=== PATIENT | male | born 1940 | race Caucasian/White ===

== ENCOUNTER → 2016-09-14 | Outpatient (CLI) | payer MEDICARE, OTHER ==
--- NOTE | 2016-09-14 14:41 | RAD ---
Lower extremity duplex artery ultrasound - bilateral 09/14/16 Indication: Claudication in the knees, bilateral leg pain (right. Comparison: None available. Procedure: Real-time grayscale, color-flow, duplex Doppler and spectral analysis of both lower extremity arterial system is performed and images are obtained.. Findings: There is mild scattered atheromatous calcification in the calf arteries bilaterally. Normal triphasic waveforms are present in the common femoral artery, superficial femoral artery, popliteal artery, anterior tibial artery, post tibial artery and dorsalis pedis artery. Impression: Mild plaque formation] in the calf arteries with no hemodynamically significant stenosis..
== END | disposition home or self-care (01) ==
LOC: US 12:21
PROVIDERS: ATTEND Physician Assistant Medical
DX: I73.9 Peripheral vascular disease, unspecified (principal); M25.562 Pain in left knee; M25.561 Pain in right knee
CPT/HCPCS: 93925

== ENCOUNTER → 2017-02-13 | Outpatient (CLI) | payer MEDICARE, OTHER ==
[~2017-02-13] MED LIST: BUPIVACAINE MPF 0.5% 30 ML VIAL. ONE; LIDOCAINE 1% PF 30 ML VIAL. ONE; methylPREDNISolone ACETATE 40 MG/ML VIAL. ONE
== END | disposition home or self-care (01) ==
LOC: SURG 09:22
PROVIDERS: ATTEND Anesthesiology Pain Medicine
DX: M47.816 Spondylosis without myelopathy or radiculopathy, lumbar region (principal); I48.91 Unspecified atrial fibrillation; Z88.9 Allergy status to unspecified drugs, medicaments and biological substances
CPT/HCPCS: 64493; 64494; J1030; J2001; J3490; 64495

== ENCOUNTER → 2017-07-17 | Day surgery (SDC) | payer MEDICARE, OTHER ==
[~2017-07-17] MED LIST changes: +APIX5TAB3 PO; +ATOR40TA PO; +BACITRACIN 50,000 UNIT VIAL. ONE; +CELE200C PO; +CEPH-264 PO; +CETI10TA22 PO; +CHOL100013 PO; +CYCL-331 PO; +DEXAMETHASONE SOD PHOS 4 MG/ML VIAL ONE; +ESZO3TAB28 PO; +FISH12002 PO; +FURO-69 PO; +GABA-586 PO; +GLUC100018 PO; +HYDR-2762 PO; +ISOS30TA4 PO; +IV RINGERS SOLUTION,LACTATED 1,000 ML IV ONE; +IV RINGERS SOLUTION,LACTATED 1,000 ML IV SCH; +LEVO175T2 PO; +LIDOCAINE 1% PF 2 ML VIAL. ID PRN; +MIDAZOLAM HCL PF 2 MG/2 ML VIAL. ONE; +MULT1TAB52 PO; +OLME1TAB35 PO; +OMEP20CA9 PO; +ONDANSETRON PF 4 MG/2 ML VIAL. IV PRN; +POTA10TA PO; +PROCHLORPERAZINE 10 MG/2 ML VIAL. IV PRN; +PROPOFOL 10,000 MCG/ML (20ML) VIAL IV ONE; +PROPOFOL 20 ML IV ONE; +[UNRECOGNIZED DRUG - OTHER]; +ceFAZolin 2GM PREMIX 2 GM/50 ML BAG IV ONE; +fentaNYL PF 250 MCG/5 ML VIAL ONE; -methylPREDNISolone ACETATE 40 MG/ML VIAL. ONE
[2017-07-17 11:15] LABS: BASO % 1 % (0-3); EOS # 0.1 x10^3/uL (0.0-0.7); EOS % 2 % (0-3); HEMATOCRIT 48.1 % (39.0-53.0); HEMOGLOBIN 16.1 g/dL (13.0-17.5); LYMPH % 17 % (24-48); MEAN CORPUSCULAR HEMOGLOBIN 30 pg (25-35); MEAN CORPUSCULAR HGB CONC 34 g/dL (31-37); MEAN CORPUSCULAR VOLUME 90 fL (79-100); MONO # 0.7 x10^3/uL (0.0-1.1); MONO % 11 % (0-9); NEUT % 69 % (31-73); PLATELET COUNT 174 x10^3/uL (140-400); RED BLOOD COUNT 5.32 x10^6/uL (4.30-5.70); RED CELL DISTRIBUTION WIDTH 13.9 % (11.5-14.5); WHITE BLOOD COUNT 5.8 x10^3/uL (4.0-11.0)
[2017-07-17 14:06] VITALS: BP 145/83
== END ==
LOC: SURG 10:02
PROVIDERS: ATTEND Anesthesiology Pain Medicine
DX: M54.16 Radiculopathy, lumbar region (principal); I10 Essential (primary) hypertension; I48.91 Unspecified atrial fibrillation; G47.30 Sleep apnea, unspecified; K21.9 Gastro-esophageal reflux disease without esophagitis; Z79.899 Other long term (current) drug therapy; Z79.01 Long term (current) use of anticoagulants; Z90.49 Acquired absence of other specified parts of digestive tract
CPT/HCPCS: 36415; 62380; 85025; 85610; 85730; J0690; J1100; J2001; J2250; J2704; J3010; J3490; J7120

== ENCOUNTER → 2018-02-14 | Outpatient (CLI) | payer MEDICARE, OTHER ==
[2017-07-17 14:06] VITALS: BP 145/83
[~2018-02-14] MED LIST changes: -BACITRACIN 50,000 UNIT VIAL. ONE; -BUPIVACAINE MPF 0.5% 30 ML VIAL. ONE; -DEXAMETHASONE SOD PHOS 4 MG/ML VIAL ONE; -IV RINGERS SOLUTION,LACTATED 1,000 ML IV ONE; -IV RINGERS SOLUTION,LACTATED 1,000 ML IV SCH; -LIDOCAINE 1% PF 2 ML VIAL. ID PRN; -LIDOCAINE 1% PF 30 ML VIAL. ONE; -MIDAZOLAM HCL PF 2 MG/2 ML VIAL. ONE; -ONDANSETRON PF 4 MG/2 ML VIAL. IV PRN; -PROCHLORPERAZINE 10 MG/2 ML VIAL. IV PRN; -PROPOFOL 10,000 MCG/ML (20ML) VIAL IV ONE; -PROPOFOL 20 ML IV ONE; -ceFAZolin 2GM PREMIX 2 GM/50 ML BAG IV ONE; -fentaNYL PF 250 MCG/5 ML VIAL ONE
[2018-02-14 10:36] LABS: ALBUMIN 3.9 g/dL (3.4-5.0); ALBUMIN/GLOBULIN RATIO 1.2 (1.0-1.7); CALCIUM 9.7 mg/dL (8.5-10.1); CREATININE 0.8 mg/dL (0.7-1.3); GFR 94.2; POTASSIUM 3.8 mmol/L (3.5-5.1); TOTAL BILIRUBIN 0.8 mg/dL (0.2-1.0); TOTAL PROTEIN 7.2 g/dL (6.4-8.2)
== END | disposition home or self-care (01) ==
LOC: LAB 09:40
PROVIDERS: ATTEND Nurse Practitioner
DX: E78.49 Other hyperlipidemia (principal)
CPT/HCPCS: 36415; 80053; 80061

== ENCOUNTER → 2018-07-22 | Outpatient (CLI) | payer MEDICARE, OTHER ==
[2017-07-17 14:06] VITALS: BP 145/83
[~2018-07-22] MED LIST changes: -HYDR-2762 PO; +HYDR-2765 PO
--- NOTE | 2018-07-23 08:31 | RAD ---
CHEST PA LATERAL CLINICAL INDICATION: cough. COMPARISON: None FINDINGS: Heart is normal in size. Mild bilateral prominent bronchial markings are seen. No focal consolidation. No pneumothorax or pleural effusion. Visualized bony thorax is within normal limits. IMPRESSION: Findings of atypical/viral infection or interstitial pulmonary edema. Electronically signed by: Tristen Garces DO (07/23/2018 8:28 AM) [facility]
== END | disposition home or self-care (01) ==
LOC: RAD 11:14
DX: R05 Cough (principal)
CPT/HCPCS: 71046

== ENCOUNTER 2019-01-03 18:30 | Emergency (ER) | payer MEDICARE, OTHER ==
[~2019-01-03] VITALS: Ht 185.4 cm; Wt 124.7 kg
[~2019-01-03 18:30] MED LIST changes: +OMEP20CA10 PO; -OMEP20CA9 PO
[2019-01-03 18:57] VITALS: BP 133/90
[2019-01-03 19:16] LABS: BACTERIA,URINE 0 /HPF (0-FEW); BILIRUBIN,URINE NEG (NEG); CLARITY,URINE HAZY; COLOR,URINE AMBER; GLUCOSE,URINE NEG (NEG); NITRITE,URINE NEG (NEG); RBC,URINE TNTC /HPF (0-2); UROBILINOGEN,URINE 4 mg/dL (0.2 mg/dL)
[2019-01-03 19:17] LABS: SQUAMOUS EPITHELIAL CELL,UR OCC /LPF
--- NOTE | 2019-01-03 19:29 | PHYS DOC ---
Past History Past Medical History: Other Past Surgical History: Other Additional Past Surgical Histo: right rotator cuff Smoking: Non-smoker Alcohol Use: Rarely Drug Use: None Adult General Chief Complaint Chief Complaint: BLOOD IN URINE HPI HPI Patient is a 78-year-old male presents with blood in his urine. He underwent a right rotator cuff surgery 5 days ago. Due to complications of the surgery ended up having to be admitted and also had a Benavidez catheter placed due to urinary retention. This afternoon noted some blood in the urine, and a feeling of fullness. This has subsequently passed. Patient denies any fever. Denies any back or flank pain. Symptoms are mild to moderate.[] Review of Systems Review of Systems Constitutional: Denies fever or chills [] Eyes: Denies change in visual acuity, redness, or eye pain [] HENT: Denies nasal congestion or sore throat [] Respiratory: Denies cough or shortness of breath [] Cardiovascular: No chest pain or palpitations[] GI: Denies abdominal pain, nausea, vomiting, bloody stools or diarrhea [] : See history of present illness[] Musculoskeletal: Denies back pain or joint pain [] Integument: Denies rash or skin lesions [] Neurologic: Denies headache, focal weakness or sensory changes [] Endocrine: Denies polyuria or polydipsia [] All other systems were reviewed and found to be within normal limits, except as documented in this note. Allergies Allergies Allergies Coded Allergies Type Severity Reaction Last Updated Verified niacin Allergy Unknown 07/17/17 Yes Physical Exam Physical Exam Constitutional: Well developed, well nourished, no acute distress, non-toxic appearance. [] HENT: Normocephalic, atraumatic, bilateral external ears normal, oropharynx moist, no oral exudates, nose normal. [] Eyes: PERRLA, EOMI, conjunctiva normal, no discharge. [] Neck: Normal range of motion, no tenderness, supple, no stridor. [] Cardiovascular:Heart rate regular rhythm, no murmur [] Lungs & Thorax: Bilateral breath sounds clear to auscultation [] Abdomen: Bowel sounds normal, soft, no tenderness, no masses, no pulsatile masses. [] Skin: Warm, dry, no erythema, no rash. [] Back: No tenderness, no CVA tenderness. [] Extremities: No tenderness, no cyanosis, no clubbing, ROM intact, no edema. [] Neurologic: Alert and oriented X 3, normal motor function, normal sensory function, no focal deficits noted. [] Psychologic: Affect normal, judgement normal, mood normal. [] Current Patient Data Vital Signs Vital Signs Date Time Temp Pulse Resp B/P (MAP) Pulse Ox O2 Delivery O2 Flow Rate FiO2 01/03/19 18:57 98.9 92 18 96 Room Air Lab Results Laboratory Tests Test 01/03/19 18:50 Urine Collection Type Unknown Urine Color [place] Urine Clarity Hazy Urine pH 5.5 Urine Specific [place] 1.020 Urine Protein 100 mg/dl (NEG-TRACE) Urine Glucose (UA) Neg mg/dL (NEG) Urine Ketones (Stick) Neg mg/dL (NEG) Urine Blood Large (NEG) Urine Nitrite Neg (NEG) Urine Bilirubin Neg (NEG) Urine Urobilinogen Dipstick 4 mg/dL (0.2 mg/dL) Urine Leukocyte Esterase Small (NEG) Urine RBC Tntc /HPF (0-2) Urine WBC 1-4 /HPF (0-4) Urine Squamous Epithelial Cells Occ /LPF Urine Bacteria 0 /HPF (0-FEW) Urine Mucus Slight /LPF EKG EKG [] Radiology/Procedures Radiology/Procedures [] Course & Med Decision Making Course & Med Decision Making Pertinent Labs and Imaging studies reviewed. (See chart for details) ED course: Patient arrived, was placed in bed, and tolerated exam well. The bladder was irrigated with return of red tinged fluid. After copious irrigation, a repeat bladder scan was performed that showed 17 mL residual. He was feeling much better. He was discharged in improved condition. Medical decision making: There is no evidence of an infection. No evidence of obstruction. No evidence of retention.[] Dragon Disclaimer Dragon Disclaimer This electronic medical record was generated, in whole or in part, using a voice recognition dictation system. Departure Departure: Impression: Primary Impression: Complication of Benavidez catheter Disposition: 01 HOME, SELF-CARE Condition: IMPROVED Referrals: CALI DAMON (PCP) Follow-up in 2-3 days Patient Instructions: Benavidez Catheter Care, Adult Additional Instructions: Follow-up with your regular doctor in 2-3 days. Return to the ER if worsening discomfort, increased amount of blood in your urine, or any other concerns. Problem Qualifiers Primary Impression: Complication of Benavidez catheter Encounter type: initial encounter Qualified Codes: T83.9XXA - Unspecified complication of genitourinary prosthetic device, implant and graft, initial encounter ASPEN DUNN DO Jan 03, 2019 19:29
== END 2019-01-03 20:00 | disposition home or self-care (01) ==
LOC: ER 18:30
DX: T83.098A Other mechanical complication of other urinary catheter, initial encounter (principal); R33.9 Retention of urine, unspecified; R31.9 Hematuria, unspecified; Z88.1 Allergy status to other antibiotic agents
CPT/HCPCS: 81001; 87086; 99285

== ENCOUNTER 2020-06-23 19:44 | Emergency (ER) | payer MEDICARE, OTHER ==
[~2020-06-23] VITALS: Ht 182.9 cm; Wt 120.5 kg
[~2020-06-23 19:44] MED LIST changes: -CETI10TA22 PO; +CETI10TA74 PO; -ISOS30TA4 PO; +ISOS30TA68 PO; +MULT-445 PO; -MULT1TAB52 PO; -OMEP20CA10 PO; +OMEP20CA16 PO
--- NOTE | 2020-06-23 19:53 | PHYS DOC ---
Past History Past Medical History: Other Past Surgical History: Other Additional Past Surgical Histo: right rotator cuff Smoking: Non-smoker Alcohol Use: Rarely Drug Use: None General Adult EDM: Chief Complaint: MECHANICAL FALL HPI: HPI: ". I had a slipp and fall.. the Lt. ankle and foot still sore.. and this knee a hurting..." Patient is a 80 year old male retired [employer] who presents with above hx and complaints of fall and injury to Lt ankle. Pt follows with Devorah for care. Pt. can do straight leg lift. Has some ecchymosis and edema behind left leg and lateral side of knee. Patient has obvious swelling of malleolus bilaterally and ankle. Small abrasion. Negative foot squeeze. Small toe Lt tender and red. Distal dorsal pedal pulses are equal. 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 Patient denies any syncope or dizziness before fall. Patient denies other injury. Patient normally follows with Devorah for care. Review of Systems: Review of Systems: Constitutional: Denies fever or chills Eyes: Denies change in visual acuity HENT: Denies nasal congestion or sore throat Respiratory: Denies cough or shortness of breath Cardiovascular: Denies chest pain or edema GI: Denies abdominal pain, nausea, vomiting, bloody stools or diarrhea : Denies dysuria Musculoskeletal: Complains of left knee, left ankle, left foot pain Integument: Denies rash Neurologic: Denies headache, focal weakness or sensory changes Endocrine: Denies polyuria or polydipsia Lymphatic: Denies swollen glands Psychiatric: Denies depression or anxiety Family History: Family History: Noncontributory to presentation Current Medications: Current Meds: See nursing for home meds Allergies: Allergies: Allergies Coded Allergies Type Severity Reaction Last Updated Verified niacin Allergy Unknown 07/17/17 Yes Physical Exam: PE: Constitutional: Moderate acute distress, non-toxic appearance. [] HENT: Normocephalic, atraumatic, bilateral external ears normal, oropharynx moist, no oral exudates, nose normal. [] Eyes: PERRLA, EOMI, conjunctiva normal, no discharge. [] Neck: Normal range of motion, no tenderness, supple, no stridor. [] Cardiovascular:Heart rate regular rhythm, no murmur [] Lungs & Thorax: Bilateral breath sounds equal apex with some basilar crackles bilaterally on auscultation [] Abdomen: Bowel sounds normal, soft, no tenderness, no masses, no pulsatile masses. Obese. Skin: Warm, dry, no erythema, no rash. [] Back: No tenderness, no CVA tenderness. [] Extremities: Left knee, ankle, and foot tenderness, no cyanosis, no clubbing, ROM limited in left ankle because of pain, , left ankle edema. Does appear to have laxity and instability of left ankle. [] Right shoulder scar. Neurologic: Alert and oriented X 3, moves all extremities but limited with left leg because of pain, does have distal sensory,, Does appear to have decreased plantar sensation. Psychologic: Affect anxious judgement normal, mood normal. [] EKG: EKG: [] Radiology/Procedures: Radiology/Procedures: [] IMAGING REPORT Signed PATIENT: DIETER GOMEZCOUNT: [id number] : 1940 LOCATION: ER AGE: 80 SEX: M EXAM STATUS: REG ER ORD. PHYSICIAN: CANDICE LOERA MD REASON: Fall on ice, left foot, ankle and knee pain PROCEDURE: KNEE LEFT 4V EXAM: XR EXAM OF ANKLE_LEFT 3V, XR KNEE _4 VIEWS WITH PATELLA_LT, XR FOOT_LEFT 3 VIEWS 06/23/2020 8:10 PM CLINICAL INDICATION: Fell on ice, left ankle foot and knee pain COMPARISON: None FINDINGS: Left foot: 3 views were obtained there is a nondisplaced fracture of the little toe proximal phalanx. No other fracture of the foot. Alignment is normal. Large acute insertional calcaneal enthesophyte. An os peroneum is noted. There is soft tissue swelling of the little toe. Left ankle: There is an oblique fracture of the distal fibula extending proximally from the level of the distal tibiofibular syndesmosis. The fracture results in a 4 mm lateral displacement and slight lateral angulation of the distal fragment. There is a transverse fracture medial malleolus resulting in 4 mm lateral displacement the distal fragment. There is medial clear space widening measuring 9 mm. Mild lateral tilt of the talus. The talar dome is intact. No definite posterior malleolar fracture. Mild soft tissue swelling, greatest laterally. Left knee: No acute fracture. Alignment is normal. There is severe lateral compartment narrowing with subchondral sclerosis and large osteophytes. Mild medial compartment and patellofemoral compartment narrowing. There is a small joint effusion. IMPRESSION: 1. Mildly displaced bimalleolar fractures with medial clear space widening. 2. Nondisplaced fracture of the little toe proximal phalanx. 3. No acute osseous abnormality of the knee. 4. 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 Electronically signed by: Radha Escobedo MD (06/23/2020 8:36 PM) [id number] DICTATED AND SIGNED BY: RADHA ESCOBEDO MD DATE: 06/23/202030 CC: CANDICE LOERA MD; CALI DAMON ~MTH0 0 Heart Score: Risk Factors: Risk Factors: DM, Current or recent (<one month) smoker, HTN, HLP, family history of CAD, obesity. Risk Scores: Score 0 - 3: 2.5% MACE over next 6 weeks - Discharge Home Score 4 - 6: 20.3% MACE over next 6 weeks - Admit for Clinical Observation Score 7 - 10: 72.7% MACE over next 6 weeks - Early Invasive Strategies Course & Med Decision Making: Course & Med Decision Making Pertinent Labs and Imaging studies reviewed. (See chart for details) Patient to wear splint. Patient elevate leg above the heart. Use walker. Follow-up with orthopedics. Take Tylenol and ibuprofen for pain. For marked pain may take Vicoprofen. Distal neurovascular intact after application of splint. Call Ortho of choice or [facility] [phone]. Impression: 1. Trip, slip and fall 2. Bimalleolar fractures left ankle 3. Fifth left toe fracture 4. Marked degenerative joint changes left knee 5. [] Dragon Disclaimer: Ramón Disclaimer: This electronic medical record was generated, in whole or in part, using a voice recognition dictation system. Departure Departure: Referrals: CALI DAMON (PCP) Scripts Hydrocodone/Ibuprofen (HYDROCODONE-IBUPROFEN 7.5-200 ) 1 Each Tablet 1 TAB PO PRN Q6HRS PRN for PAIN, #30 TAB 0 Refills Prov: CANDICE LOERA MD 06/23/20 Dragon Disclaimer This chart was dictated in whole or in part using Voice Recognition software in a busy, high-work load, and often noisy Emergency Department environment. It may contain unintended and wholly unrecognized errors or omissions. Dragon Disclaimer This chart was dictated in whole or in part using Voice Recognition software in a busy, high-work load, and often noisy Emergency Department environment. It may contain unintended and wholly unrecognized errors or omissions. CANDICE LOERA MD Jun 23, 2020 19:53
[2020-06-23] MEDS ORDERED: HYDROcodon/IBUPROFEN 7.5/200MG 1 TAB TABLET PO ONE (20:15)
--- NOTE | 2020-06-23 20:39 | RAD ---
EXAM: XR EXAM OF ANKLE_LEFT 3V, XR KNEE _4 VIEWS WITH PATELLA_LT, XR FOOT_LEFT 3 VIEWS 06/23/2020 8:1 0 PM CLINICAL INDICATION: Fell on ice, left ankle foot and knee pain COMPARISON: None FINDINGS: Left foot: 3 views were obtained there is a nondisplaced fracture of the little toe proximal phalanx. No other fracture of the foot. Alignment is normal. Large acute insertional calcaneal enthesophyte. An os peroneum is noted. There is soft tissue swelling of the little toe. Left ankle: There is an oblique fracture of the distal fibula extending proximally from the level of the distal tibiofibular syndesmosis. The fracture results in a 4 mm lateral displacement and slight l ateral angulation of the distal fragment. There is a transverse fracture medial malleolus resulting i n 4 mm lateral displacement the distal fragment. There is medial clear space widening measuring 9 mm. Mild lateral tilt of the talus. The talar dome is intact. No definite posterior malleolar fracture. Mild soft tissue swelling, greatest laterally. Left knee: No acute fracture. Alignment is normal. There is severe lateral compartment narrowing with subchondral sclerosis and large osteophytes. Mild medial compartment and patellofemoral compartment narrowing. There is a small joint effusion. IMPRESSION: 1. Mildly displaced bimalleolar fractures with medial clear space widening. 2. Nondisplaced fracture of the little toe proximal phalanx. 3. No acute osseous abnormality of the knee. 4. 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 Electronically signed by: Radha Escobedo MD (06/23/2020 8:36 PM) [id number]
[2020-06-23] MEDS ORDERED: HYDR-1179 PO (20:45)
[2020-06-23 21:43] VITALS: BP 120/73
== END 2020-06-23 21:43 | disposition home or self-care (01) ==
LOC: ER 19:44
DX: S82.52XA Displaced fracture of medial malleolus of left tibia, initial encounter for closed fracture (principal); S92.512A Displaced fracture of proximal phalanx of left lesser toe(s), initial encounter for closed fracture; R60.0 Localized edema; Z98.890 Other specified postprocedural states; G62.9 Polyneuropathy, unspecified; Z88.1 Allergy status to other antibiotic agents; W01.0XXA Fall on same level from slipping, tripping and stumbling without subsequent striking against object, initial encounter; Y93.89 Activity, other specified; Y92.89 Other specified places as the place of occurrence of the external cause; Y99.8 Other external cause status
CPT/HCPCS: 29515; 73564; 73610; 73630; 99284

== ENCOUNTER → 2020-07-14 | Outpatient (CLI) | payer MEDICARE, OTHER ==
[2020-06-23 21:43] VITALS: BP 120/73
[~2020-07-14] MED LIST changes: +HYDR-1179 PO
[2020-07-14 13:41] LABS: ALBUMIN 3.7 g/dL (3.4-5.0); ALBUMIN/GLOBULIN RATIO 1.1 (1.0-1.7); CREATININE 0.7 mg/dL (0.7-1.3); GFR 109.1; POTASSIUM 4.4 mmol/L (3.5-5.1); TOTAL BILIRUBIN 0.9 mg/dL (0.2-1.0); TOTAL PROTEIN 7.1 g/dL (6.4-8.2)
== END ==
LOC: LAB 08:55
PROVIDERS: ATTEND Nurse Practitioner
DX: E78.5 Hyperlipidemia, unspecified (principal)
CPT/HCPCS: 36415; 80053; 80061

== ENCOUNTER → 2020-07-23 | Outpatient (CLI) | payer MEDICARE, OTHER ==
[2020-06-23 21:43] VITALS: BP 120/73
--- NOTE | 2020-07-23 09:24 | RAD ---
XR EXAM OF ANKLE_LEFT 3V History: Reason: Left ankle fracture 06/26 with surgery, still some pain issues / Spl. Instructions: / History: Technique: 3 views left ankle. Comparison: June 23, 2020 Findings: Internal fixation medial malleolus fracture. Unchanged alignment of displaced inferior malleolus frac ture fragment. Slight interval healing. Internal fixation distal fibular fracture. Unchanged alignmen t. Decreased ankle soft tissue swelling. Vascular calcifications. Symmetric ankle mortise. Plantar ca lcaneal spur. Prominence of the anterior talus, unchanged. Irregularity of the fifth proximal phalanx, unchanged. Impression: 1. Internal fixation medial malleolus and distal fibular fractures, unchanged alignment. Electronically signed by: Hammad Jarquin DO (07/23/2020 9:22 AM) [facility]
== END ==
LOC: DXRAD 08:59
PROVIDERS: ATTEND Orthopaedic Surgery Sports Medicine
DX: S82.52XA Displaced fracture of medial malleolus of left tibia, initial encounter for closed fracture (principal); X58.XXXA Exposure to other specified factors, initial encounter; Y93.89 Activity, other specified; Y92.89 Other specified places as the place of occurrence of the external cause; Y99.8 Other external cause status
CPT/HCPCS: 73610

== ENCOUNTER → 2020-09-27 | Outpatient (CLI) | payer MEDICARE, OTHER ==
--- NOTE | 2020-09-27 13:59 | RAD ---
EXAM: Left ankle, 3 views. HISTORY: Fracture fixation. COMPARISON: 07/23/2020 FINDINGS: 3 views of the left ankle are obtained. There is internal fixation of a distal fibular meta physeal fracture with a plate and multiple screws. There is near complete healing along the distal fi bular fracture line. There is internal fixation of a mildly displaced medial malleolar fracture. Ther e has been no interval change in displacement along the fracture line or interval healing along the f racture line. There is ankle soft tissue swelling. The ankle mortise is intact. There is suspected di suse osteopenia. There is enthesopathy at the Achilles tendon insertion. There is a tiny plantar spur . There are vascular calcifications. IMPRESSION: 1. No significant change in a nearly healed distal fibular fracture status post internal fixation. 2. No significant interval change in an ununited medial malleolar fracture status post internal fixat ion. 3. 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 Electronically signed by: Bere Linn MD (09/27/2020 1:56 PM) [id number]
== END ==
LOC: RAD 12:27
PROVIDERS: ATTEND Orthopaedic Surgery Sports Medicine
DX: S82.52XK Displaced fracture of medial malleolus of left tibia, subsequent encounter for closed fracture with nonunion (principal); I70.90 Unspecified atherosclerosis; M77.8 Other enthesopathies, not elsewhere classified; X58.XXXD Exposure to other specified factors, subsequent encounter
CPT/HCPCS: 73610

== ENCOUNTER 2020-10-17 12:22 | Emergency (ER) | payer MEDICARE, OTHER ==
[~2020-10-17] VITALS: Ht 182.9 cm; Wt 120.5 kg
--- NOTE | 2020-10-17 13:30 | PHYS DOC ---
Past History Past Medical History: A-Fib, Arthritis, DVT, High Cholesterol, Hypertension, Other Additional Past Medical Histor: back pain,eugenio Past Surgical History: Cholecystectomy, Other Additional Past Surgical Histo: right rotator cuff, cadiac cathx2,catarac,back ablation Smoking: Non-smoker Alcohol Use: None Drug Use: None General Adult EDM: Chief Complaint: LOWER EXT PAIN HPI: HPI: Patient is a male presents with left heel and foot pain. Patient states he broke his left ankle in July and since then has had to have a surgery due to infection. Denies fever. Patient reports he has been using Tylenol and ice which helps with the pain. Patient still has full range of motion. Patient has a history of A. fib, DVTs. Review of Systems: Review of Systems: Constitutional: Denies fever or chills Eyes: Denies change in visual acuity HENT: Denies nasal congestion or sore throat Respiratory: Denies cough or shortness of breath Cardiovascular: Denies chest pain or edema GI: Denies abdominal pain, nausea, vomiting, bloody stools or diarrhea : Denies dysuria Musculoskeletal: Denies back pain or joint pain Integument: Swelling and pain to left foot and ankle Neurologic: Denies headache, focal weakness or sensory changes Endocrine: Denies polyuria or polydipsia Lymphatic: Denies swollen glands Psychiatric: Denies depression or anxiety Allergies: Allergies: Allergies Coded Allergies Type Severity Reaction Last Updated Verified niacin Allergy Unknown 06/23/20 Yes Physical Exam: PE: Constitutional: Well developed, well nourished, no acute distress, non-toxic appearance. [] HENT: Normocephalic, atraumatic, bilateral external ears normal, oropharynx moist, no oral exudates, nose normal. [] Eyes: PERRLA, EOMI, conjunctiva normal, no discharge. [] Neck: Normal range of motion, no tenderness, supple, no stridor. [] Cardiovascular:Heart rate regular rhythm, no murmur [] Lungs & Thorax: Bilateral breath sounds clear to auscultation [] Abdomen: Bowel sounds normal, soft, no tenderness, no masses, no pulsatile masses. [] Skin: Left ankle is warm, redness, swelling, pain. Pedal pulses intact. Back: No tenderness, no CVA tenderness. [] Extremities: Left lower heel tenderness, no cyanosis, ROM intact, Nonpitting edema Neurologic: Alert and oriented X 3, normal motor function, normal sensory function, no focal deficits noted. [] Psychologic: Affect normal, judgement normal, mood normal. [] Current Patient Data: Vital Signs: Vital Signs Date Time Temp Pulse Resp B/P (MAP) Pulse Ox O2 Delivery O2 Flow Rate FiO2 10/17/20 12:30 98.0 90 18 99/57 (71) 96 Room Air EKG: EKG: [] Radiology/Procedures: Radiology/Procedures: []XR FOOT_LEFT 3 VIEWS History: Reason: LEFT FOOT PAIN, SWELLING / Spl. Instructions: / History: Technique: 3 views left foot Comparison: None. Findings: Diffuse osteopenia. No dislocation. No fracture. Internal fixation bimalleolar fracture. Lidocaine spur. Vascular calcifications. Foot soft tissue swelling. Impression: 1. No acute osseous abnormality. 2. Foot soft tissue swelling. 3. Diffuse osteopenia. Electronically signed by: Hammad Jarquin DO (10/17/2020 1:44 PM) [id number] Heart Score: C/O Chest Pain: No Risk Factors: Risk Factors: DM, Current or recent (<one month) smoker, HTN, HLP, family history of CAD, obesity. Risk Scores: Score 0 - 3: 2.5% MACE over next 6 weeks - Discharge Home Score 4 - 6: 20.3% MACE over next 6 weeks - Admit for Clinical Observation Score 7 - 10: 72.7% MACE over next 6 weeks - Early Invasive Strategies Course & Med Decision Making: Course & Med Decision Making Pertinent Labs and Imaging studies reviewed. (See chart for details) [] 80-year-old male presents with left heel and foot pain. Patient had to have surgery after breaking his ankle in July. Patient reports he had to have a second surgery on August 16 due to infection. Patient's ankle is red, warm, swollen. Patient is afebrile in the emergency room. Patient states "he had a fever 2 weeks ago at 102 but has not had a fever since". Denies calf pain, shortness of breath. Patient still has full range of motion. Some nonpitting edema noted on left ankle. Pedal pulses are intact. Patient is currently on Eliquis due to a DVT in 2019. Left ankle/foot x-ray ordered to rule out osteomyelitis. Spoke with patient's surgeon, Dr. Cole who recommended CBC, ESR, C-reactive protein. Patient sent home with prescription for doxycycline, [address] Kaplan would like to see the patient follow-up on at his office in [place]. Patient given strict return precautions and sign of infection to watch for. Patient is hemodynamically stable. Patient is appreciative and okay with discharge plan. Dragon Disclaimer: Dragon Disclaimer: This electronic medical record was generated, in whole or in part, using a voice recognition dictation system. Departure Departure: Impression: Primary Impression: Ankle pain, left Qualified Codes: M25.572 - Pain in left ankle and joints of left foot Disposition: HOME / SELF CARE / HOMELESS Condition: STABLE Referrals: CALI DAMON (PCP) Patient Instructions: Ankle Pain, Bone and Joint Infections Additional Instructions: You were seen in the emergency room for left ankle pain and swelling. I spoke with your surgeon, Dr. Kaplan who would like you to follow-up in his office on . I am also putting you on an antibiotic. Please take as directed. Please return to the emergency room if you have worsening symptoms such as pain, fevers, pus from the ankle. EMERGENCY DEPARTMENT GENERAL DISCHARGE INSTRUCTIONS Thank you for coming to [facility] (ED) today and trusting us with you care. We trust that you had a positivie experience in our Emergency Department. If you wish to speak to the department management, you may call the director at [phone]. YOUR FOLLOW UP INSTRUCTIONS ARE FOLLOWS: 1. Do you have a private Doctor? If you do not have a private doctor, please ask for a resource list of physicians or clinics that may be able to assist you with follow up care. 2. The Emergency Physician has interpreted your x-rays. The X-Ray specialist will also review them. If there is a change in the findings, you will be notified in 48 hours when at all possible. 3. A lab test or culture has been done, your results will be reviewed and you will be notified if you need a change in treatment. ADDITIONAL INSTRUCTIONS AND INFORMATION: 1. Your care today has been supervised by a physician who is specially trained in emergency care. Many problems require more than one evaluation for a complete diagnosis and treatment. We recommend that you schedule your follow up appointment as recommended to ensure complete treatment of you illness or injury. If you are unable to obtain follow up care and continue to have a problem, or if your condition worsens, we recommend that you return to the ED. 2. We are not able to safely determine your condition over the phone nor are we able to give sound medical advice over the phone. For these safety reasons, if you call for medical advice we will ask you to come to the ED for further evaluation. 3. If you have any questions regarding these discharge instructions please call the ED at [phone]. SAFETY INFORMATION: In the interest of safety, wellness, and injury prevention; we encourage you to wear your sealbelt, if you smoke; quite smoking, and we encourage family to use a protective helmet for bicycling and other sporting events that present an increased risk for head injury. IF YOUR SYMPTOMS WORSEN OR NEW SYMPTOMS DEVELOP, OR YOU HAVE CONCERNS ABOUT YOUR CONDITION; OR IF YOUR CONDITION WORSENS WHILE YOU ARE WAITING FOR YOUR FOLLOW UP APPOINTMENT; EITHER CONTACT YOUR PRIMARY CARE DOCTOR, THE PHYSICIAN WHOSE NAME AND NUMBER YOU WERE GIVEN, OR RETURN TO THE ED IMMEDIATELY. Scripts Doxycycline Hyclate (DOXYCYCLINE HYCLATE) 100 Mg Tablet 1 TAB PO BID for infection for 7 Days, #14 TAB Prov: MICHAEL GALARZA APRN 10/17/20 MICHAEL GALARZA APRN Oct 17, 2020 13:30
--- NOTE | 2020-10-17 13:46 | RAD ---
XR FOOT_LEFT 3 VIEWS History: Reason: LEFT FOOT PAIN, SWELLING / Spl. Instructions: / History: Technique: 3 views left foot Comparison: None. Findings: Diffuse osteopenia. No dislocation. No fracture. Internal fixation bimalleolar fracture. Lidocaine sp ur. Vascular calcifications. Foot soft tissue swelling. Impression: 1. No acute osseous abnormality. 2. Foot soft tissue swelling. 3. Diffuse osteopenia. Electronically signed by: Hammad Jarquin DO (10/17/2020 1:44 PM) [id number]
[2020-10-17 16:00] VITALS: BP 114/68
[2020-10-17] MEDS ORDERED: DOXY100T PO (16:21)
[2020-10-17 16:53] LABS: BASO # 0.1 x10^3/uL (0.0-0.2); BASO % 1 % (0-3); EOS # 0.1 x10^3/uL (0.0-0.7); EOS % 1 % (0-3); HEMATOCRIT 41.1 % (39.0-53.0); LYMPH # 0.9 x10^3/uL (1.0-4.8); LYMPH % 11 % (24-48); MEAN CORPUSCULAR HEMOGLOBIN 31 pg (25-35); MEAN CORPUSCULAR HGB CONC 34 g/dL (31-37); MEAN CORPUSCULAR VOLUME 90 fL (79-100); MONO # 0.6 x10^3/uL (0.0-1.1); MONO % 7 % (0-9); NEUT # 6.5 x10^3uL (1.8-7.7); NEUT % 80 % (31-73); PLATELET COUNT 417 x10^3/uL (140-400); RED BLOOD COUNT 4.58 x10^6/uL (4.30-5.70); RED CELL DISTRIBUTION WIDTH 14.3 % (11.5-14.5); WHITE BLOOD COUNT 8.1 x10^3/uL (4.0-11.0)
[2020-10-17 17:53] LABS: SEDIMENTATION RATE 45 (0-15)
== END 2020-10-17 16:36 | disposition home or self-care (01) ==
LOC: ER 12:22
DX: M25.572 Pain in left ankle and joints of left foot (principal); I48.91 Unspecified atrial fibrillation; M19.90 Unspecified osteoarthritis, unspecified site; E78.00 Pure hypercholesterolemia, unspecified; I10 Essential (primary) hypertension; Z86.718 Personal history of other venous thrombosis and embolism; Z88.1 Allergy status to other antibiotic agents
CPT/HCPCS: 36415; 73630; 85025; 85651; 86140; 99284

== ENCOUNTER → 2021-01-04 | Outpatient (CLI) | payer MEDICARE, OTHER ==
[~2021-01-04] MED LIST changes: +DOXY100T PO
--- NOTE | 2021-01-04 17:05 | RAD ---
EXAM: AP and lateral views left tibia/fibula DATE: 01/04/2021 2:41 PM INDICATION: Reason: SWELLING, REDNESS, HX OF SX / Spl. Instructions: / History: . COMPARISON: No Prior FINDINGS: Postoperative changes of 2 medial malleolar screws and distal fibular screw plate device. The second from distal fibular screw is now pulled back approximately 7 mm. Moderate overlying soft tissue swell ing is seen. Associated lucencies are seen within the distal tibia laterally as well as the distal fi bula. Lucency medial talar dome. Joint space effacement ankle joint, new compared to 09/27/2020. Atherosclerotic vascular calcification s are seen. Prominent posterior calcaneal enthesophyte. IMPRESSION: 1. Postoperative changes of medial and lateral malleolar fixation with retraction of the second from distal lateral malleolar screw, now approximately 7 mm proud. Lucencies within the distal fibula and tibia as well as the medial talus possibly degenerative given interval joint space effacement. Aggre ssive/disuse osteopenia or infection could also have this appearance. 2. There is now effacement of the left ankle joint space. Electronically signed by: Erick Hope MD (01/04/2021 5:03 PM) [id number]
== END ==
LOC: RAD 14:35
PROVIDERS: ATTEND Physician Assistant Medical
DX: M77.32 Calcaneal spur, left foot (principal); M79.89 Other specified soft tissue disorders; Z98.890 Other specified postprocedural states
CPT/HCPCS: 73600

== ENCOUNTER → 2021-01-13 | Outpatient (CLI) | payer MEDICARE, OTHER | LOC: SPEC 15:04 | PROVIDERS: ATTEND Podiatrist | DX: S91.002A Unspecified open wound, left ankle, initial encounter (principal); X58.XXXA Exposure to other specified factors, initial encounter; Y93.89 Activity, other specified; Y92.89 Other specified places as the place of occurrence of the external cause; Y99.8 Other external cause status | CPT/HCPCS: 87071; 87075; 87077; 87186 ==

== ENCOUNTER → 2021-03-15 | Outpatient (CLI) | payer MEDICARE, OTHER ==
[~2021-03-15] MED LIST changes: -CYCL-331 PO; +CYCL10TA19 PO
[2021-03-15 14:20] LABS: BASO # 0.1 x10^3/uL (0.0-0.2); BASO % 1 % (0-3); EOS # 0.1 x10^3/uL (0.0-0.7); EOS % 2 % (0-3); HEMATOCRIT 41.2 % (39.0-53.0); HEMOGLOBIN 13.5 g/dL (13.0-17.5); LYMPH # 0.9 x10^3/uL (1.0-4.8); LYMPH % 14 % (24-48); MEAN CORPUSCULAR HEMOGLOBIN 30 pg (25-35); MEAN CORPUSCULAR HGB CONC 33 g/dL (31-37); MEAN CORPUSCULAR VOLUME 90 fL (79-100); MONO # 0.5 x10^3/uL (0.0-1.1); MONO % 7 % (0-9); NEUT % 76 % (31-73); PLATELET COUNT 261 x10^3/uL (140-400); RED BLOOD COUNT 4.56 x10^6/uL (4.30-5.70); RED CELL DISTRIBUTION WIDTH 16.7 % (11.5-14.5); WHITE BLOOD COUNT 6.6 x10^3/uL (4.0-11.0)
[2021-03-15 14:31] LABS: ALBUMIN 3.4 g/dL (3.4-5.0); C REACTIVE PROTEIN 2.6 mg/L (0-3.3); CALCIUM 10.1 mg/dL (8.5-10.1); CREATININE 0.6 mg/dL (0.7-1.3); GFR 130.3; TOTAL BILIRUBIN 0.3 mg/dL (0.2-1.0); TOTAL PROTEIN 6.7 g/dL (6.4-8.2)
== END ==
LOC: SPEC 13:55
PROVIDERS: ATTEND Internal Medicine Infectious Disease
DX: Z45.2 Encounter for adjustment and management of vascular access device (principal)
CPT/HCPCS: 36415; 80053; 85025; 86140

== ENCOUNTER → 2021-03-22 | Outpatient (CLI) | payer MEDICARE, OTHER ==
[2021-03-22 13:50] LABS: BASO % 1 % (0-3); EOS # 0.1 x10^3/uL (0.0-0.7); EOS % 2 % (0-3); HEMOGLOBIN 13.7 g/dL (13.0-17.5); LYMPH # 0.8 x10^3/uL (1.0-4.8); LYMPH % 18 % (24-48); MEAN CORPUSCULAR HEMOGLOBIN 30 pg (25-35); MEAN CORPUSCULAR HGB CONC 33 g/dL (31-37); MEAN CORPUSCULAR VOLUME 90 fL (79-100); MONO # 0.2 x10^3/uL (0.0-1.1); MONO % 5 % (0-9); NEUT # 3.5 x10^3uL (1.8-7.7); NEUT % 74 % (31-73); PLATELET COUNT 167 x10^3/uL (140-400); RED BLOOD COUNT 4.66 x10^6/uL (4.30-5.70); RED CELL DISTRIBUTION WIDTH 16.8 % (11.5-14.5); WHITE BLOOD COUNT 4.7 x10^3/uL (4.0-11.0)
[2021-03-22 13:53] LABS: ALBUMIN 3.4 g/dL (3.4-5.0); ALBUMIN/GLOBULIN RATIO 1.1 (1.0-1.7); CALCIUM 9.8 mg/dL (8.5-10.1); CREATININE 0.7 mg/dL (0.7-1.3); GFR 109.1; POTASSIUM 3.6 mmol/L (3.5-5.1); TOTAL BILIRUBIN 0.4 mg/dL (0.2-1.0); TOTAL PROTEIN 6.5 g/dL (6.4-8.2)
== END ==
LOC: SPEC 13:20
PROVIDERS: ATTEND Internal Medicine Infectious Disease
DX: Z45.2 Encounter for adjustment and management of vascular access device (principal)
CPT/HCPCS: 36415; 80053; 85025; 86140

== ENCOUNTER → 2021-03-29 | Outpatient (CLI) | payer MEDICARE, OTHER ==
[2021-03-29 12:47] LABS: ALBUMIN 3.6 g/dL (3.4-5.0); ALBUMIN/GLOBULIN RATIO 1.2 (1.0-1.7); C REACTIVE PROTEIN 3.3 mg/L (0-3.3); CALCIUM 9.2 mg/dL (8.5-10.1); CREATININE 0.7 mg/dL (0.7-1.3); GFR 109.1; POTASSIUM 3.6 mmol/L (3.5-5.1); TOTAL BILIRUBIN 0.6 mg/dL (0.2-1.0); TOTAL PROTEIN 6.6 g/dL (6.4-8.2)
[2021-03-29 13:07] LABS: BASO % 1 % (0-3); EOS # 0.2 x10^3/uL (0.0-0.7); EOS % 4 % (0-3); HEMATOCRIT 42.4 % (39.0-53.0); LYMPH # 0.8 x10^3/uL (1.0-4.8); LYMPH % 14 % (24-48); MEAN CORPUSCULAR HEMOGLOBIN 30 pg (25-35); MEAN CORPUSCULAR HGB CONC 33 g/dL (31-37); MEAN CORPUSCULAR VOLUME 91 fL (79-100); MONO # 0.3 x10^3/uL (0.0-1.1); MONO % 6 % (0-9); NEUT # 4.5 x10^3uL (1.8-7.7); NEUT % 76 % (31-73); PLATELET COUNT 139 x10^3/uL (140-400); RED BLOOD COUNT 4.68 x10^6/uL (4.30-5.70); RED CELL DISTRIBUTION WIDTH 17.2 % (11.5-14.5); WHITE BLOOD COUNT 5.9 x10^3/uL (4.0-11.0)
== END ==
LOC: SPEC 12:25
PROVIDERS: ATTEND Internal Medicine Infectious Disease
DX: Z45.2 Encounter for adjustment and management of vascular access device (principal)
CPT/HCPCS: 36415; 80053; 85025; 86140

== ENCOUNTER → 2021-04-05 | Outpatient (CLI) | payer MEDICARE, OTHER ==
[2021-04-05 12:48] LABS: BASO % 0 % (0-3); EOS # 0.1 x10^3/uL (0.0-0.7); EOS % 3 % (0-3); HEMATOCRIT 42.6 % (39.0-53.0); LYMPH # 0.7 x10^3/uL (1.0-4.8); LYMPH % 14 % (24-48); MEAN CORPUSCULAR HEMOGLOBIN 30 pg (25-35); MEAN CORPUSCULAR HGB CONC 33 g/dL (31-37); MEAN CORPUSCULAR VOLUME 91 fL (79-100); MONO # 0.3 x10^3/uL (0.0-1.1); MONO % 6 % (0-9); NEUT % 77 % (31-73); PLATELET COUNT 143 x10^3/uL (140-400); RED BLOOD COUNT 4.68 x10^6/uL (4.30-5.70); RED CELL DISTRIBUTION WIDTH 16.4 % (11.5-14.5); WHITE BLOOD COUNT 5.2 x10^3/uL (4.0-11.0)
[2021-04-05 12:57] LABS: ALBUMIN 2.7 g/dL (3.4-5.0); C REACTIVE PROTEIN 2.4 mg/L (0-3.3); CALCIUM 7.3 mg/dL (8.5-10.1); CREATININE 0.6 mg/dL (0.7-1.3); GFR 130.3; TOTAL BILIRUBIN 0.2 mg/dL (0.2-1.0); TOTAL PROTEIN 5.4 g/dL (6.4-8.2)
[2021-04-05 13:14] LABS: POTASSIUM 2.8 mmol/L (3.5-5.1)
== END ==
LOC: SPEC 12:35
PROVIDERS: ATTEND Internal Medicine Infectious Disease
DX: Z45.2 Encounter for adjustment and management of vascular access device (principal)
CPT/HCPCS: 36415; 80053; 85025; 86140

== ENCOUNTER → 2021-04-07 | Outpatient (CLI) | payer MEDICARE, OTHER ==
[2021-04-07 13:14] LABS: CALCIUM 9.3 mg/dL (8.5-10.1); CREATININE 0.7 mg/dL (0.7-1.3); GFR 109.1; POTASSIUM 3.9 mmol/L (3.5-5.1)
== END ==
LOC: SPEC 12:33
PROVIDERS: ATTEND Orthopaedic Surgery
DX: E87.6 Hypokalemia (principal)
CPT/HCPCS: 36415; 80048

== ENCOUNTER → 2021-04-12 | Outpatient (CLI) | payer MEDICARE, OTHER ==
[2021-04-12 12:58] LABS: BASO % 0 % (0-3); EOS # 0.2 x10^3/uL (0.0-0.7); EOS % 3 % (0-3); HEMATOCRIT 42.2 % (39.0-53.0); HEMOGLOBIN 14.1 g/dL (13.0-17.5); LYMPH # 0.7 x10^3/uL (1.0-4.8); LYMPH % 14 % (24-48); MEAN CORPUSCULAR HEMOGLOBIN 30 pg (25-35); MEAN CORPUSCULAR HGB CONC 33 g/dL (31-37); MEAN CORPUSCULAR VOLUME 91 fL (79-100); MONO # 0.4 x10^3/uL (0.0-1.1); MONO % 8 % (0-9); NEUT % 75 % (31-73); PLATELET COUNT 170 x10^3/uL (140-400); RED BLOOD COUNT 4.65 x10^6/uL (4.30-5.70); RED CELL DISTRIBUTION WIDTH 16.3 % (11.5-14.5); WHITE BLOOD COUNT 5.4 x10^3/uL (4.0-11.0)
[2021-04-12 13:10] LABS: ALBUMIN 3.6 g/dL (3.4-5.0); ALBUMIN/GLOBULIN RATIO 1.2 (1.0-1.7); C REACTIVE PROTEIN 1.7 mg/L (0-3.3); CALCIUM 9.3 mg/dL (8.5-10.1); CREATININE 0.7 mg/dL (0.7-1.3); GFR 109.1; POTASSIUM 3.9 mmol/L (3.5-5.1); TOTAL BILIRUBIN 0.4 mg/dL (0.2-1.0); TOTAL PROTEIN 6.6 g/dL (6.4-8.2)
== END ==
LOC: SPEC 12:50
PROVIDERS: ATTEND Internal Medicine Infectious Disease
DX: Z45.2 Encounter for adjustment and management of vascular access device (principal)
CPT/HCPCS: 36415; 80053; 85025; 86140

== ENCOUNTER → 2021-07-07 | Outpatient (CLI) | payer MEDICARE, OTHER ==
[2021-07-07 12:04] LABS: ALBUMIN/GLOBULIN RATIO 1.3 (1.0-1.7); CALCIUM 9.5 mg/dL (8.5-10.1); CREATININE 0.6 mg/dL (0.7-1.3); POTASSIUM 3.9 mmol/L (3.5-5.1); TOTAL BILIRUBIN 0.5 mg/dL (0.2-1.0); TOTAL PROTEIN 7.1 g/dL (6.4-8.2)
[2021-07-07 19:14] LABS: CHOLESTEROL/HDL RATIO 3.3
== END ==
LOC: LAB 10:50
PROVIDERS: ATTEND Nurse Practitioner
DX: E78.5 Hyperlipidemia, unspecified (principal)
CPT/HCPCS: 36415; 80053; 80061

== ENCOUNTER → 2021-09-29 | Outpatient (CLI) | payer MEDICARE, OTHER ==
--- NOTE | 2021-09-29 16:31 | RAD ---
XR CHEST 2V History: Reason: ABNORMAL CXR / Spl. Instructions: / History: Comparison: July 22, 2018 Findings: Mild multifocal ill-defined opacities. No pleural effusion. No pneumothorax. Spinal stimulator leads noted. Unchanged heart size. Impression: 1. Mild multifocal ill-defined opacities, may represent infectious or inflammatory process. Recommen d follow-up to ensure resolution. Electronically signed by: Hammad Jarquin DO (09/29/2021 4:28 PM) [id number]
== END ==
LOC: RAD 13:05
PROVIDERS: ATTEND Physician Assistant Medical
DX: R93.89 Abnormal findings on diagnostic imaging of other specified body structures (principal)
CPT/HCPCS: 71046